=== PATIENT | male | born 1990 | race Caucasian/White ===

== ENCOUNTER 2024-12-14 18:11 | Emergency (ER) | payer OTHER, SELFPAY ==
[2024-12-14 18:14] VITALS: BP 118/76; PULSE 70; RESP 18; TEMP 36.9; O2SAT 98; BMI 35.5
[2024-12-14 18:18] VITALS: BP 118/76; PULSE 72; O2SAT 99
--- NOTE | 2024-12-14 18:18 | HMH.EDGENADL ---
Discharge Plan Disposition Patient Disposition: Home, Self-Care Condition: Good Prescriptions Prescriptions: New cephalexin 500 mg capsule 500 mg PO BID 7 Days Qty: 14 0RF Referrals Follow up/Referrals: Margarita Saxena APRN [Primary Care Provider, Medical] - See instructions Activity Restrictions/Add. Instructions Additional Instructions/Restrictions: As we discussed please try to keep your wound clean and dry. I would cover your forehead with a baseball cap. I have sent in a prescription to your pharmacy. Please take it till it is gone. If you have any new persistent or worsening signs or symptoms please return to the ER as needed. Clinical Impressions Clinical Impression: Forehead laceration Qualifiers: Encounter type: initial encounter Qualified Code(s): S01.81XA - Laceration without foreign body of other part of head, initial encounter Instructions Patient Instructions: DI for Laceration Repair Print Language Print Language: Chadian Discharge ED Provider: Chaz Hammond Adult HPI <CHRIS Rich - Last Filed: 12/14/24 18:48> General Chief complaint: Wound/Laceration Stated complaint: AO 12/14/24 1700 laceration above right eye Time Seen by Provider: 12/14/24 18:18 History of Present Illness HPI narrative: Patient presents for evaluation of a forehead laceration. Patient was utilizing a pry bar on a [facility] and struck himself in the right forehead. He opened up a laceration above his right eyebrow. He did not lose consciousness has no other trauma or injury. Related Data Previous Rx's ?Medication ?Instructions ?Recorded cephalexin 500 mg capsule 500 mg PO BID 7 days #14 caps 12/14/24 Allergies Allergy/AdvReac Type Severity Reaction Status Date / Time No Known Allergies Allergy Verified 12/14/24 18:19 PFS <CHRIS Rich - Last Filed: 12/14/24 18:48> [facility] Disclaimer: The information contained in this section may have been updated after the patient was seen, as this information can be updated by other users. Social History (Updated 12/14/24 @ 18:48 by CHRIS Rich) Smoking Status: Never smoker alcohol intake: never current occupational status: employed Travel in the last 8 weeks?: None Have you lived/traveled outside US in past 30 days?: No Contact w/someone who lives/traveled outside US past 30 days?: No Exposure to someone with infectious disease in past 14 days?: No Do you have a fever (greater than 100.4 F or 38 C)?: No Have you tested positive for COVID-19?: No Exposed to someone with COVID-19 in past 14 days?: No Do you have a sore throat?: No Do you have a cough?: No Do you have any weakness?: No Do you have any diarrhea?: No Are you experiencing any unusual bleeding?: No Do you have any muscle aches/pain?: No Do you have any abdominal pain?: No Are you experiencing loss of taste or smell?: No <CHRIS Rich - Last Filed: 12/14/24 18:48> ROS Obtained: Yes Systems reviewed as appropriate & no additional complaints except as documented Physical Exam <CHRIS Rich - Last Filed: 12/14/24 18:48> General General appearance: alert and in no apparent distress Respiratory Respiratory exam: Present normal lung sounds bilaterally Cardiovascular Cardiovascular exam: Present regular rate Neurological Exam Neurological exam: Present alert and oriented X3 Medical Decision Making <CHRIS Rich - Last Filed: 12/14/24 18:48> Medical Records Screening: Per USPSTF and CDC recommendations, given the prevalence of disease in our region, it is our hospital?s policy to screen for HIV and viral Hepatitis for all patients aged 18 and over and those with ongoing risk factors. [place] Inquiry Pt receiving controlled substance: No Vital Signs: 12/14/24 18:14 12/14/24 18:18 12/14/24 18:54 Temperature 98.5 F 98.1 F Temperature Source Oral Pulse Rate 72 82 Pulse Rate [Radial] 70 Respiratory Rate 18 18 Blood Pressure 118/76 122/77 Blood Pressure [Right Arm] 118/76 Blood Pressure Mean [Right Arm] 90 Blood Pressure Source [Right Arm] Automatic Cuff Blood Pressure Position [Right Arm] Sitting 02 Sat by Pulse Oximetry 98 99 Oxygen Delivery Method Room Air Room Air Orders (Tests/Meds): ED MEDICATIONS Discontinued Medications Generic Name Dose Route Start Last Admin Trade Name Freq PRN Reason Stop Dose Admin Cephalexin HCl 500 mg 12/14/24 18:21 12/14/24 18:39 Cephalexin 500mg Capsule PO 12/14/24 18:22 500 mg ONCE ONE Administration Tetanus/Reduced Diphtheria/Acell Pertussis 0.5 ml 12/14/24 18:21 12/14/24 18:38 Tet/Diphth/Pert-Adult 0.5ml Syringe IM 12/14/24 18:22 0.5 ml .ONCE ONE Administration Medical Decision Narrative: In summary patient is a 44-year-old male who presents to the emergency department for evaluation of forehead laceration. Patient is hemodynamically stable upon arrival, afebrile. Physical exam is remarkable for a 2-1/2 cm laceration above his right eyebrow on his forehead. There is no palpable bony deformity. Extraocular movements are intact without pain. [place] Coma Score 15 cranial nerves II through XII intact respiratory exam. Differential diagnosis includes possible fracture versus simple laceration however patient has no red flags that is very superficial and does not penetrate down to the calvarium and patient has no red flags to suggest or support alternative diagnoses so they were not pursued. Initial workup was considered with labs and imaging however patient again has no red flags to suggest alternative diagnoses other than a simple laceration thus they were not pursued or ordered. Initial interventions include Tdap. After irrigation, wound was closed with Dermabond and Steri-Strips with good skin approximation. Patient given Tdap and first dose of Keflex with prescription sent to his pharmacy. Patient is appropriate for discharge with strict return precautions. <Chaz Hammond DO - Last Filed: 12/15/24 03:40> Vital Signs: 12/14/24 18:14 12/14/24 18:18 12/14/24 18:54 Temperature 98.5 F 98.1 F Temperature Source Oral Pulse Rate 72 82 Pulse Rate [Radial] 70 Respiratory Rate 18 18 Blood Pressure 118/76 122/77 Blood Pressure [Right Arm] 118/76 Blood Pressure Mean [Right Arm] 90 Blood Pressure Source [Right Arm] Automatic Cuff Blood Pressure Position [Right Arm] Sitting 02 Sat by Pulse Oximetry 98 99 Oxygen Delivery Method Room Air Room Air Orders (Tests/Meds): ED MEDICATIONS Discontinued Medications Generic Name Dose Route Start Last Admin Trade Name Freq PRN Reason Stop Dose Admin Cephalexin HCl 500 mg 12/14/24 18:21 12/14/24 18:39 Cephalexin 500mg Capsule PO 12/14/24 18:22 500 mg ONCE ONE Administration Tetanus/Reduced Diphtheria/Acell Pertussis 0.5 ml 12/14/24 18:21 12/14/24 18:38 Tet/Diphth/Pert-Adult 0.5ml Syringe IM 12/14/24 18:22 0.5 ml .ONCE ONE Administration Medical Decision Narrative: In summary patient is a 44-year-old male who presents to the emergency department for evaluation of forehead laceration. Patient is hemodynamically stable upon arrival, afebrile. Physical exam is remarkable for a 2-1/2 cm laceration above his right eyebrow on his forehead. There is no palpable bony deformity. Extraocular movements are intact without pain. [place] Coma Score 15 cranial nerves II through XII intact respiratory exam. Differential diagnosis includes possible fracture versus simple laceration however patient has no red flags that is very superficial and does not penetrate down to the calvarium and patient has no red flags to suggest or support alternative diagnoses so they were not pursued. Initial workup was considered with labs and imaging however patient again has no red flags to suggest alternative diagnoses other than a simple laceration thus they were not pursued or ordered. Initial interventions include Tdap. After irrigation, wound was closed with Dermabond and Steri-Strips with good skin approximation. Patient given Tdap and first dose of Keflex with prescription sent to his pharmacy. Patient is appropriate for discharge with strict return precautions. I was consulted by the CLIFF, and we discussed the complexity of problems being addressed. I approved the treatment and management plan for this patient's care in the emergency department, thus performing a substantive portion of the medical decision making. Chaz Hammond DO -- Patient was independentely evaluated by me. On history he states that he was pulling on a rowena attached to a [employer] [facility] and the plastic cuffing impacted his head and lacerated his forehead. He did not fall, strike his head against another object, or lose consciousness. He did not have any headaches, vision changes, altered mentation, altered gait, or other head impact aside from the forehead. On exam there is a small laceration on the right forehead superior to the brow. No crepitus, no stepoffs of the skull. C-spine nontender to palpation. Due to this reason more severe pathology such as intracranial hemorrhage, skull fracture, and c-spine injury was felt to be less likely and we decided to forego imaging. Laceration was repaired successfully with steri strips and glue. Patient tolerated this procedure well. At this time, all questions have been answered and all parties are agreeable with the decision to discharge home. Procedures <CHRIS Rich - Last Filed: 12/14/24 18:48> Laceration Laceration 1: Site: face (Forehead) Side (If applicable): right Size (cm): 2.5 Description: linear Depth: simple, single layer Pre-repair: wound explored, irrigated extensively and deep structures intact Skin layer closed with: Dermabond Critical Care <CHRIS Rich - Last Filed: 12/14/24 18:48> Critical Care Time Critical Care Time: No
[2024-12-14] MEDS: TET/DIPHTH/PERT-ADULT 0.5ML SYRINGE 0.5 ML IM (18:38)
--- OUTSIDE RECORDS SUMMARY | 2024-12-14 18:38 | XMS_ITS | Clinical Summary ---
Author Organization [employer] ([place], [place], [place], [place]) Address [address] [place] [address] Care Team Providers Care Pheresis Nurse Name Role Phone Unavailable Primary Care Provider Unavailabl e Allergies No known active allergies Medications No known medications Social History Tobacco Use Types Packs/Day Years Used Date Smoking Tobacco: Never Smokeless Tobacco: Current Chew Tobacco Cessation:Ready to Q uit: Not Asked; Counseling Given: Not Answered Alcohol Use Standard Drinks/Week Comments Never 0 (1 standard drink = 0.6 oz pur e alcohol) Food Insecurity Answer Date Recorded Food run out past 12 months Not on file 12/23 Food did not last past 12 months Not on file 01/19/2024 Employment Answer Date Recorded Help finding and keeping a job Not on file 0 01/19/2024 Family and Community Support Answer Renan e Recorded Help with Day to Day Activities Not on file 01/19/2024 Feeling Lonely or Isolated Not on file 01/18 Educational Attainment Answer Date Massimo rded Speak language other than [place] at home Not on file 01/19/2024 Want help with school or training Not on file 01/19/2024 Substance Use Answer Date Recorded Used prescription meds for non-medical reasons N ot on file 01/19/2024 Used illegal drugs past 12 months Not on file 01/19/2024 Sex and Gender Information Value Date Recorded Sex Assigned at Not on file Legal Sex Male 9:39 AM CDT Gender Identity Not on file Sexual Orientation Not on file Last Filed Vital Signs Vital Sign Reading Time Taken Comments Blood Pressure 131/76 01/19/2024 12:05 PM EDT Pulse 81 01/19/2024 12:05 PM EDT Temperature 37.1 C (98.7 F) 01/19/2024 10:52 AM EDT Respiratory Rate 21 01/19/2024 12:05 PM EDT Oxygen Saturation 98% 01/19/2024 12:34 PM EDT Inhaled Oxygen Concentration - - Weight 118.8 kg (262 lb) 01/19/2024 10:52 AM EDT Height 182.9 cm (6') 01/19/2024 10:52 AM EDT Body Mass Index 35.53 01/19/2024 10:52 AM EDT Plan of Treatment Health Maintenance Due Date Last Done Comments Depression Screening (12+) 2002 Tobacco Cessation Counseling and Screening (12+) 2002 HIV Screening 2005 Hepatitis C Screening 2008 Lipid Panel 2010 DTAP/TDAP/TD VACCINES (3 - T d or Tdap) 12/12/2012 12/12/2002, 10/13/1995 COVID-19 VACCINE (2023-2 5 season) 2024 Influenza Vaccine (#1) 2025 Pneumococcal Vaccine: 0-49 Years Aged Out No longer eligible b ased on patient's age to complete this topic Insurance [employer] [place] [id number]
--- OUTSIDE RECORDS SUMMARY | 2024-12-14 18:38 | XMS_ITS | Referral Summary ---
Author Organization [employer] ([place], [place], [place], [place]) Address [address] [place] [address] Care Team Providers Care Health Information Clerk Name Role Phone Unavailable Primary Care Provider [...] 0 01/19/2024 Family and Community Support Answer Ernan e Recorded Help with Day to Day Activities Not on file 01/19/2024 Feeling Lonely or Isolated Not on file 01/18 Educational Attainment Answer Date Massimo rded Speak language other than Togolese at home Not on file 01/19/2024 Want [...] 01/19/2024 10:52 AM EDT Plan of Treatment Not on file Insurance GENERIC COMMERCIAL
[2024-12-14 18:54] VITALS: BP 122/77; PULSE 82; RESP 18; TEMP 36.7; O2SAT 99
== END 2024-12-14 18:55 | disposition home or self-care (01) ==
PROVIDERS: Emergency Provider Student in an Organized Health Care Education/Training Program; PCP Nurse Practitioner Family
DX: S01.81XA Laceration without foreign body of other part of head, initial encounter (principal); W22.8XXA Striking against or struck by other objects, initial encounter; Z23 Encounter for immunization
CPT/HCPCS: 12011; 90471; 90715; 99283